=== PATIENT | female | born 1990 | race Two or more races ===

== ENCOUNTER 2025-03-12 13:32 | Emergency (ER) | payer MEDICAID ==
[~2025-03-12] VITALS: Ht 170.2 cm; Wt 94.8 kg
[2025-03-12] MEDS ORDERED: MORPHINE SULFATE INJ 4 MG/ML DISP.SYRIN ONE (14:22)
[2025-03-12] MEDS: IV NS 0.9% 1,000 ML BAG IV ONE (14:33)
[2025-03-12] MEDS: MORPHINE SULFATE INJ 2 MG/ML DISP.SYRIN IV ONE (14:34)
[2025-03-12 14:36] LABS: PLATELET COUNT (AUTO) 213 K/uL (150-450); RED BLOOD CELL COUNT(AUTO) 4.55 MIL/uL (4.0-5.2); RED CELL DISTRIBUTION WIDTH 13.1 % (11.5-15.0); WHITE BLOOD COUNT (AUTO) 7.7 K/uL (4.3-11.0)
[2025-03-12 14:41] LABS: PREGNANCY TEST URINE QUAL NEGATIVE (NEGATIVE)
[2025-03-12 14:47] LABS: CALCIUM, SERUM 9.2 mg/dL (8.5-10.1); CREATININE 0.9 mg/dL (0.6-1.3); SODIUM SERUM 140.0 mmol/L (136-145); UREA NITROGEN, BLOOD 13.0 mg/dL (7-18)
[2025-03-12 14:58] LABS: ASPARTATE AMINOTRANSFERASE 137.0 U/L (15-37); PREGNANCY TEST SERUM QUAN 1.0 mIU/mL (0-6); TOTAL PROTEIN, SERUM 7.0 g/dL (6.4-8.2)
[2025-03-12] MEDS ORDERED: KETO10TA2 PO (15:38)
[2025-03-12] MEDS ORDERED: TRAN650T2 PO (15:38)
[2025-03-12 16:25] VITALS: BP 130/70; TEMP 98.5; O2SAT 98
== END 2025-03-12 16:25 | disposition home or self-care (01) ==
LOC: ER 13:45
DX: N93.9 Abnormal uterine and vaginal bleeding, unspecified (principal); R10.2 Pelvic and perineal pain; Z88.0 Allergy status to penicillin
CPT/HCPCS: 99285; 96374; 76856; 96361; 85025; 84703; 36415; 80053; 86850; 84702; J2270; J7030